=== PATIENT | male | born 1970 | race Hispanic/Latino ===

== ENCOUNTER 2021-03-21 08:45 | Day surgery (SDC) | payer OTHER ==
[2021-03-21] MEDS ORDERED: NA CHLORIDE 0.9% 1,000 ML ONE (10:47)
[2021-03-21] MEDS ORDERED: dexAMETHasone 10 MG/ML VIAL ONE (11:33)
[2021-03-21] MEDS ORDERED: MIDAZOLAM HCL 2 MG/2 ML INJ ONE (11:33)
[2021-03-21] MEDS ORDERED: propofoL 200 MG/20 ML VIAL IV ONE (11:33)
[2021-03-21] MEDS ORDERED: LIDOCAINE 1% MPF 5 ML VIAL ONE (11:33)
[2021-03-21] MEDS ORDERED: FENTANYL CITR 100 MCG/2 ML ONE ×2 (11:33→13:48)
[2021-03-21] MEDS ORDERED: LIDOCAINE 1% W/EPI 1:100,000 10 ML VIAL ONE (12:14)
[2021-03-21] MEDS ORDERED: Mastisol Adhesive Liq ONE ×2 (12:14→14:18)
--- NOTE | 2021-03-21 14:10 | P.BOP ---
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
[2021-03-21] MEDS ORDERED: Ringers Lactate 1,000 ML IV ONE (14:14)
[2021-03-21] MEDS: MORPHINE 4 MG/ML SYR ONE ×2 (14:21→14:27)
[2021-03-21 14:30] VITALS: O2SAT 97
[2021-03-21] MEDS ORDERED: KETOROLAC 30 MG/ML INJ ONE (14:55)
[2021-03-21 15:21] VITALS: BP 145/82; TEMP 96.5
--- NOTE | 2021-03-21 15:36 | OP ---
Date of Procedure: 03/21/2021 Surgeon: Maura Al MD Preoperative Diagnosis: Neck mass. Postoperative Diagnosis: Thyroglossal duct cyst. [employer] Teacher: Esther Gutierrez. Procedure: Cole procedure. Indication: The patient presented with new-onset of a left upper neck mass, which was fluctuant. He underwent a fine-needle aspiration, which demonstrated amorphous debris and macrophages with no sign of malignancy. After the aspiration, the fluid-filled cavity reaccumulated and was bothersome to e patient. We discussed the risks, benefits, and alternatives, and he elected for surgical removal. Preoperative CT scan was consistent with a paramedian thyroglossal duct cyst versus other cystic nec k mass. Procedure In Detail: The patient was brought to the operating room. He was placed under general ane sthesia via LMA. A shoulder roll was placed. The neck was extended. The patient was noted to have a 4 cm soft, fluctuant mass just left of the thyroid cartilage. The planned incision site with an exi sting skin crease was injected with 3 mL of 1% lidocaine with epinephrine and the neck was prepped an d draped in the standard sterile fashion. A 5 cm incision was made through the skin, subcutaneous ti ssue, and platysma. A subplatysmal flap was elevated superiorly and inferiorly. The inferior latera l aspect of the mass was identified and appeared dark purple in nature. The strap muscles were eleva adri anteriorly from the neck mass and soft tissue attachments were divided using the LigaSure. The m ass did separate easily from the surrounding tissues and seemed to track superiorly and anteriorly to wards the hyoid bone. Once it was clinically apparent that this cystic neck mass did indeed likely r epresent a thyroglossal duct cyst with a paramedian presentation, a direct incision through the fatty subcutaneous tissues was made over the hyoid bone, isolating it from the surrounding tissue. The th yrohyoid muscle was divided since the mass tracked inferior or deep to this muscle and could not be a dequately mobilized without muscle division. The superior aspect of the hyoid bone was isolated usin g the Axtell elevator and the bone clipper was used to divide the hyoid bone medially and laterally ar ound its attachment point to the cystic mass. The bone was carefully mobilized using the Axtell and t he final soft tissue attachments on the deep aspect of the cyst were divided using the LigaSure. The specimen was satisfied for later examination and photodocumentation. The area deep to the hyoid bon e had a small amount of oozing and was packed with a peanut sponge followed by packing with a gauze s ponge. After re-examination, there was persistent mild oozing. The bleeding edge of the bone was ju diciously cauterized, which significantly improved the oozing. A small piece of Surgicel was then pa cked within this area to aid in additional hemostasis. After irrigation of the surgical wound, there was no significant bleeding noted and the thyrohyoid muscle was re-suspended near its attachment poi nt. The platysma muscle was then reapproximated in an interrupted fashion. The skin was closed in r unning subcuticular fashion using 5-0 Monocryl. The wound was dressed with Steri-Strips and the mercedes ent was returned to care of Anesthesia for awakening and extubation in the operating room, which proc eeded without difficulty. Complications: None. Implants: None. Disposition: The patient will be discharged home later today and follow up with Dr. Al in 10 da for postoperative evaluation. No prescription pain medications are recommended. The patient's ca regiver is instructed to treat the patient with Tylenol and/or ibuprofen as needed. The patient also takes gabapentin routinely, which may also assist in his postoperative pain control. STEPHANIE/RANI Voice ID: [id number] Report ID: [id number]
== END 2021-03-21 15:55 | disposition home or self-care (01) ==
LOC: OR 08:45
PROVIDERS: ATTEND Otolaryngology
PROC: 0WB60ZX Excision of Neck, Open Approach, Diagnostic (ICD-10-PCS; principal; 2021-03-21 10:00)
DX: Q89.2 Congenital malformations of other endocrine glands (principal); E66.3 Overweight; Z20.822 Contact with and (suspected) exposure to COVID-19
CPT/HCPCS: 93005; 82947 ×2; 88305; 60280; U0003; J2704; J2250; J3010 ×2; J7120; J7030; 88304; J1100